=== PATIENT | female | born 1960 | race Caucasian/White ===

== ENCOUNTER → 2017-10-15 | Outpatient (CLI) | payer OTHER | LOC: M.ULTRA 14:54 | DX: E03.9 Hypothyroidism, unspecified (principal) ==

== ENCOUNTER → 2019-03-20 | Outpatient (CLI) | payer OTHER | LOC: M.RAD 17:17 | DX: M76.62 Achilles tendinitis, left leg (principal) ==

== ENCOUNTER 2019-08-18 18:55 | Emergency (ER) | payer OTHER ==
[~2019-08-18] VITALS: Ht 165.1 cm; Wt 67.1 kg
[2019-08-18] MEDS ORDERED: SYNTHROID88 MC1 PO (19:23)
[2019-08-18 19:35] LABS: ABSOLUTE BASOPHILS 0.1 thou/uL (0.0-0.2); ABSOLUTE EOSINOPHILS 0.3 thou/uL (0.0-0.7); ABSOLUTE LYMPHOCYTES 3.4 thou/uL (0.8-5.3); ABSOLUTE MONOCYTES 0.7 thou/uL (0.0-1.2); BASOPHILS 0.6 %; EOSINOPHILS 3.1 %; HEMATOCRIT 43.9 % (37.0-47.0); HEMOGLOBIN 15.5 gm/dL (12.0-15.0); LYMPHOCYTES 35.8 %; MCH 33.3 pg (26.0-34.0); MCHC 35.3 g/dL (28.0-37.0); MCV 94.1 fL (80.0-100.0); MONOCYTES 7.7 %; MPV 8.9 fl. (7.2-11.1); NUCLEATED RBCS 0 /100WBC; PLATELET COUNT* 218 thou/uL (150-400); POLYS 52.8 %; RBC 4.66 mil/uL (4.20-5.00); RDW-CV 12.6 % (10.5-14.5); WBC 9.4 thou/uL (4.0-11.0)
[2019-08-18 19:41] LABS: CALCIUM 9.3 mg/dL (8.5-10.1); CREATININE 0.7 mg/dL (0.6-1.3); POTASSIUM 3.5 mmol/L (3.5-5.1)
[2019-08-18] MEDS ORDERED: CLEOCIN HCL150 M1 PO (20:44)
[2019-08-18] MEDS ORDERED: MEDROLDOSEPACK PO (20:45)
[2019-08-18] MEDS ORDERED: HYDROCODON-ACE1 EAC8 PO (20:45)
[2019-08-18 21:38] VITALS: BP 173/74
== END 2019-08-18 21:40 | disposition home or self-care (01) ==
LOC: M.ERS 18:55
PROVIDERS: Emergency Medicine
DX: K11.21 Acute sialoadenitis (principal); Z88.2 Allergy status to sulfonamides

== ENCOUNTER → 2019-10-26 | Outpatient (CLI) | payer OTHER ==
[~2019-10-26] MED LIST: CLEOCIN HCL150 M1 PO; HYDROCODON-ACE1 EAC8 PO; MEDROLDOSEPACK PO; SYNTHROID88 MC1 PO
== END ==
LOC: M.RAD 15:00
DX: Z12.31 Encounter for screening mammogram for malignant neoplasm of breast (principal)

== ENCOUNTER → 2021-04-04 | Outpatient (CLI) | payer OTHER | LOC: M.RAD 14:06 | PROVIDERS: ATTEND Family Medicine | DX: Z12.31 Encounter for screening mammogram for malignant neoplasm of breast (principal) ==

== ENCOUNTER 2021-09-10 19:57 | Emergency (ER) | payer OTHER ==
[~2021-09-10] VITALS: Ht 165.1 cm; Wt 69.4 kg
[2021-09-10] MEDS ORDERED: LOVASTATIN 20 M20 MG PO (20:54)
[2021-09-10] MEDS ORDERED: AUGMENTIN 875-1 EACH PO (20:55)
[2021-09-10] MEDS ORDERED: ARTHRITIS PAIN100 GM PO (20:56)
[2021-09-10] MEDS ORDERED: CARAFATE 1 GM TA1 G1 PO (20:56)
[2021-09-11 00:51] LABS: ABSOLUTE BASOPHILS 0.1 thou/uL (0.0-0.2); ABSOLUTE EOSINOPHILS 0.4 thou/uL (0.0-0.7); ABSOLUTE MONOCYTES 0.7 thou/uL (0.0-1.2); ABSOLUTE NEUTROPHILS 5.5 thou/uL (1.6-8.1); BASOPHILS 0.7 %; EOSINOPHILS 3.6 %; HEMATOCRIT 41.4 % (37.0-47.0); HEMOGLOBIN 14.1 gm/dL (12.0-15.0); LYMPHOCYTES 31.1 %; MCH 32.9 pg (26.0-34.0); MCHC 34.1 g/dL (28.0-37.0); MCV 96.5 fL (80.0-100.0); MONOCYTES 7.1 %; MPV 8.4 fl. (7.2-11.1); NUCLEATED RBCS 0 /100WBC; PLATELET COUNT* 202 thou/uL (150-400); POLYS 57.5 %; RBC 4.29 mil/uL (4.20-5.00); RDW-CV 12.5 % (10.5-14.5); WBC 9.7 thou/uL (4.0-11.0)
[2021-09-11 01:01] LABS: CALCIUM 8.8 mg/dL (8.5-10.1); CREATININE 0.7 mg/dL (0.6-1.3); POTASSIUM 3.9 mmol/L (3.5-5.1)
[2021-09-11 04:38] VITALS: BP 148/68
== END 2021-09-11 04:38 | disposition home or self-care (01) ==
LOC: M.ERS 19:57
PROVIDERS: Personal Emergency Response Attendant
DX: K11.21 Acute sialoadenitis (principal); Z79.899 Other long term (current) drug therapy; Z88.2 Allergy status to sulfonamides